=== PATIENT | female | born 1955 | race Caucasian/White ===

== ENCOUNTER 2016-09-07 03:00 | Emergency (ER) | payer OTHER ==
[~2016-09-07] VITALS: Ht 157.5 cm; Wt 112.7 kg
[2016-09-07 03:03] VITALS: TEMP 98.7
[2016-09-07] MEDS ORDERED: BENICAR5 MG PO (03:09)
[2016-09-07] MEDS ORDERED: OTEZLA PO (03:09)
[2016-09-07] MEDS ORDERED: FOLIC ACID 11 MG/TA1 PO (03:09)
[2016-09-07] MEDS ORDERED: ZYLOPRIM 100MG100 MG PO (03:10)
[2016-09-07] MEDS ORDERED: LIPITOR 10MG10 MG PO (03:11)
[2016-09-07] MEDS ORDERED: RASUVO30 MG/0.6 SQ (03:11)
[2016-09-07] MEDS ORDERED: XARELTO15 MG PO (03:12)
[2016-09-07] MEDS ORDERED: HUMALOG100 U/ML SQ (03:12)
[2016-09-07 03:43] LABS: BASO % 0.5 % (0.0-2.0); EOS # 0.2 (0.0-0.7); EOS % 2.6 % (0-4.0); GRAN # 5.9 (1.4-6.5); GRAN % 72.2 % (42.2-75.2); HEMATOCRIT 40.2 % (37.0-47.0); HEMOGLOBIN 12.8 g/dl (12.5-16.0); LYMPH # 1.4 (1.2-3.4); LYMPH % 17.5 % (20.0-51.0); MEAN CELL VOLUME 83 fl (80.0-100.0); MEAN CORPUSCULAR HEMOGLOBIN 26 pg (27.0-31.0); MEAN CORPUSCULAR HGB CONC 32 g/dl (33.0-37.0); MEAN PLATELET VOLUME 9.2 fl (7.4-10.4); MONO # 0.6 (0.1-0.6); MONO % 6.7 % (1.7-9.3); PLATELET COUNT 235 K/mm3 (130-400); RED BLOOD COUNT 4.85 M/mm3 (4.10-5.30); REDCELL DISTRIBUTION WIDTH-CV 16.9 % (11.5-14.5); WHITE BLOOD COUNT 8.2 K/mm3 (4.8-10.8)
[2016-09-07 03:47] LABS: INR 1.9 (0.8-3.0); PROTHROMBIN TIME 21.5 SECONDS (9.7-12.8)
[2016-09-07 03:50] LABS: PARTIAL THROMBOPLASTIN TIME 34.3 SECONDS (26.0-37.0)
[2016-09-07 03:57] LABS: ADJUSTED CALCIUM 9.4 mg/dL (8.4-10.2); BILIRUBIN,TOTAL 0.5 mg/dL (0.0-1.0); CALCIUM 9.4 mg/dL (8.4-10.2); CREATININE, serum 0.79 mg/dL (0.52-1.25); TOTAL PROTEIN 7.4 gm/dL (6.4-8.2)
[2016-09-07 05:14] VITALS: BP 140/59; PULSE 90
== END 2016-09-07 05:14 | disposition home or self-care (01) ==
LOC: COL.ER 03:00
PROVIDERS: Emergency Medicine
DX: K92.1 Melena (principal); K06.8 Other specified disorders of gingiva and edentulous alveolar ridge; I82.4Z1 Acute embolism and thrombosis of unspecified deep veins of right distal lower extremity; E11.9 Type 2 diabetes mellitus without complications; I25.10 Atherosclerotic heart disease of native coronary artery without angina pectoris; Z79.4 Long term (current) use of insulin; Z79.82 Long term (current) use of aspirin; Z79.02 Long term (current) use of antithrombotics/antiplatelets; Z90.49 Acquired absence of other specified parts of digestive tract